=== PATIENT | female | born 1995 | race Asian ===

== ENCOUNTER 2024-06-24 13:58 | Inpatient (IN) ==
--- NOTE | 2024-06-24 14:13 | Emergency Department Note ---
Impression & Plan Depression with suicidal ideation ED Provider Note NAME: GILBERTO HERNANDEZ AGE: 29 SEX: F : 1995 ARRIVES VIA: Law Enforcement Transport INFORMANT: Patient, ED PROVIDER(S): Wilfredo Good MD CHIEF COMPLAINT: Suicidal ideation MEDICAL DECISION MAKING: Patient presented due to concern for suicidal ideation and plan. Blood work was obtained. Patient is a medically cleared seen evaluated by psych case operator referrals were made. Patient was accepted as a 201 voluntary admission. Discussion w/ other healthcare providers: None Prior /Outside records reviewed: None Differential diagnosis: Mood disorder, infection, hypoglycemia, electrolyte abnormalities, dehydration, medication side effect among others were considered. Diagnostics, as interpreted by me: ECG: None None Medical decision rules: Suicide risk severity score Imaging studies: None HPI: Patient presents due to concern for mental wellness to depressed mood suicidal ideation. The patient states that she always had symptoms and during high school back home she had been seen at that time but was doing well she has been to [facility] for the last year and during that time the patient did reach out to her therapist at home who recommended medications but they were unable to prescribe and the patient thought that she was just doing okay as they did not do anything further. Patient reports about 2 months ago she been to have worsening symptoms. The patient to have more fleeting thoughts of suicidal ideation but it has become more prevalent. The patient did establish with [facility] around that time has been going to group therapy but did not find this very helpful. Patient recently started on fluoxetine and increased from 5 to 10 to 15 mg and had increasing suicidal ideations so psychiatrist thought that maybe this was related to this and thus decreased currently on 5 mg and started Zoloft currently on 50 mg beginning today last 2 days he been taking 25 mg. Patient states that she has had thoughts of cutting her veins with herself in front of a moving car in order to kill herself. The patient denies any prior history of self-harm. 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 Patient states that her sleep has been poor difficulty with falling asleep and subsequently staying asleep if she wakes up in the middle the night. Patient states that she has had a poor appetite she has been trying to increase the amount that she is getting. She is felt to have low energy. Patient did discuss things with Today and thus was brought in by police. Patient is willing for inpatient treatment. She denies alcohol tobacco or drug use. PAST MEDICAL HISTORY: Depression PAST SURGICAL HISTORY: No pertinent past surgical history SOCIAL HISTORY: [employer] student. Denies alcohol tobacco or drug use. HOME MEDICATIONS: See Below ALLERGIES: See Below VITALS: See Below PHYSICAL EXAMINATION: GENERAL: NAD, non-toxic. EYE EXAM: Normal conjunctiva. PERRL, no anisocoria and EOM's grossly intact w/o pain. OROPHARYNX: Moist mucus membranes, grossly normal dentition. NECK: Trachea midline, no stridor. LUNGS: Clear to auscultation. Normal chest wall mechanics. HEART: NSR, no MRG. ABDOMEN: Abdomen soft, non-tender, no masses, no rebound or guarding. BACK: No CVA TTP. SKIN: No rashes and no bruising. UPPER EXTREMITIES: Upper extremities are grossly normal. LOWER EXTREMITIES: Grossly normal, no edema. NEURO EXAM: A&O x3, cranial nerves II-XII grossly intact, normal speech, moves all 4 extremities. 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 Required: No Beliefs That Will Affect Care: None Feels Safe at Home: Yes Gender Identity: Female Assistive Devices: None Results & Data (ED) Vital Signs Vital Signs - 24 hr 06/24/24 14:07 06/24/24 16:50 Temperature 37.2 C 36.5 C Temperature Source Temporal Artery Scan Oral Pulse Rate 80 Pulse Rate [Left Finger] 74 Respiratory Rate 18 19 Respiratory Effort / Characteristics Non-Labored Spontaneous Non-Labored Spontaneous Respiratory Depth Normal Normal Respiratory Pattern Regular Regular Blood Pressure 121/81 Blood Pressure [Left Arm] 113/75 Blood Pressure Mean 94 Blood Pressure Mean [Left Arm] 87 Pulse Oximetry 98 96 Oxygen Delivery Method Room Air Room Air Sepsis Recent Fever Within 48 Hours No Sepsis New/Unexplained Change in Mental Status N/A Sepsis Action Taken by Nursing No Action Required Home Medications Current Medication List: was personally reviewed by vt Laboratory Data Attestation: I reviewed the patient's lab results. 06/24/24 14:35 06/24/24 14:35 Lab Results 06/24/24 06/24/24 Range/Units 14:25 14:35 WBC 7.86 (4.8-10.8) K/ul RBC 4.85 (4.20-5.40) M/uL Hgb 11.8 L (12.0-16.0) g/dl Hct 37.8 (37.0-47.0) % MCV 77.9 L (80.0-100.0) fL MCH 24.3 L (25.0-34.0) pg MCHC 31.2 L (32.0-36.0) g/dL RDW Std Deviation 40.9 (36.4-46.3) fL RDW Coeff of Dez 14.7 H (11.5-14.5) % Plt Count 324 (130-400) K/uL MPV 11.4 (9.4-12.4) fL Immature Gran % (Auto) 0.3 % Neut % (Auto) 63.6 % Lymph % (Auto) 24.9 % [place] % (Auto) 5.1 % Eos % (Auto) 5.0 % Baso % (Auto) 1.1 % Neut # (Auto) 5.00 (1.40-6.50) K/uL Lymph # (Auto) 1.96 (1.20-3.40) K/uL [place] # (Auto) 0.40 (0.11-0.59) K/uL Eos # (Auto) 0.39 (0.00-0.50) K/uL Baso # (Auto) 0.09 (0.00-0.20) K/uL Immature Gran # (Auto) 0.02 (0.01-0.20) K/uL Sodium 137 (136-145) mmol/L Potassium 3.6 (3.5-5.1) mmol/L Chloride 104 (98-107) mmol/L Carbon Dioxide 25 (21-32) mmol/L Anion Gap 8 (3-11) BUN 9 (6-23) mg/dl Creatinine 0.74 (0.6-1.2) mg/dl Est Cr Clr Drug Dosing 75.2 ml/min eGFR 113.65 BUN/Creatinine Ratio 12.2 (10-20) Glucose 111 H (70-99(Fasting)) mg/dl Calcium 9.8 (8.6-10.3) mg/dl Total Bilirubin 0.3 (0.2-1.0) mg/dl AST 34 (13-39) U/L ALT 18 (7-52) U/L Alkaline Phosphatase 52 (34-104) U/L Total Protein 8.5 H (6.0-8.3) gm/dl Albumin 4.8 (3.4-5.0) gm/dl Globulin 3.7 (2.5-4.0) gm/dl Albumin/Globulin Ratio 1.3 (0.9-2) TSH 2.657 (0.300-4.500) uIu/ml Urine Color Yellow Urine Appearance Clear (Clear) Urine pH 5.5 (4.5-7.5) Ur Specific [place] 1.007 (1.000-1.030) Urine Protein Negative (Negative) Urine Glucose (UA) Negative (Negative) Urine Ketones Negative (Negative) Urine Blood Negative (Negative) Urine Nitrite Negative (Negative) Urine Bilirubin Negative (Negative) Urine Urobilinogen Negative (Negative) Ur Leukocyte Esterase Negative (Negative) Urine Test Negative (Negative) Salicylates < 3.0 L (3.0-30) mg/dl Urine Opiates Screen Neg (Neg) Ur Methadone, Qual Neg (Neg) Urine Fentanyl Screen Neg (Neg) Acetaminophen < 3 L (10-30) ug/ml Urine Barbiturates Neg (Neg) Ur Phencyclidine (PCP) Neg (Neg) U Amphetamin/Meth Scrn Neg (Neg) MDMA (Ecstasy) Screen Neg (Neg) U Benzodiazepines Scrn Neg (Neg) Ur Cocaine Metabolite Neg (Neg) U Marijuana (THC) Screen Neg (Neg) Ethyl Alcohol mg/dL < 10.0 (<10.0) mg/dl SARS-CoV-2, RNA, NAAT NEGATIVE (NEGATIVE) Discharge Plan Visit Data Chief Complaint: Mental Health Evaluation Stated Complaint: MENTAL HEALTH EVAL/201 ED Provider: Wilfredo Good Discharge Problem: Depression with suicidal ideation Patient Disposition: Admitted As Inpatient Discharge Instructions Interventions: ED Discharge Assessment Last Done: 06/24/24 17:56
[2024-06-24 14:53] LABS: Pregnancy Test, Urine Negative (Negative)
[2024-06-24 14:54] LABS: Appearance Urine Clear (Clear); Bilirubin Urine Negative (Negative); Blood Urine Negative (Negative); Color Urine Yellow; Glucose Urine UA Negative (Negative); Ketones Urine Negative (Negative); Leukocyte Esterase Urine Negative (Negative); Nitrite Urine Negative (Negative); Protein Urine Negative (Negative); Specific Gravity Urine 1.007 (1.000-1.030); Urobilinogen Urine Negative (Negative); pH Urine 5.5 (4.5-7.5)
[2024-06-24 15:09] LABS: Albumin Globulin Ratio 1.3 (0.9-2); Albumin Level 4.8 gm/dl (3.4-5.0); BUN Creatinine Ratio 12.2 (10-20); Bilirubin,Total 0.3 mg/dl (0.2-1.0); Calcium 9.8 mg/dl (8.6-10.3); Creatinine Clr Calc Pharmacy 75.2 ml/min; Globulin 3.7 gm/dl (2.5-4.0); Potassium 3.6 mmol/L (3.5-5.1); Total Protein 8.5 gm/dl (6.0-8.3)
[2024-06-24 15:23] LABS: Thyroid Stimulating Hormone 2.657 uIu/ml (0.300-4.500)
[2024-06-24 15:34] LABS: Acetaminophen < 3 ug/ml (10-30); Salicylate < 3.0 mg/dl (3.0-30)
[2024-06-24 15:41] LABS: Amphetamines+Metham, Urine Neg (Neg); Barbiturates, Urine Neg (Neg); Benzodiazepine, Urine Neg (Neg); Cocaine, Urine Neg (Neg); Fentanyl, Urine Neg (Neg); MDMA (Ecstacy), Urine Neg (Neg); Marijuana, Urine Neg (Neg); Methadone, Urine Neg (Neg); Opiate, Urine Neg (Neg); Phencyclidine, Urine Neg (Neg)
[2024-06-24 16:49] LABS: Basophils # (auto) 0.09 K/uL (0.00-0.20); Basophils % (auto) 1.1 %; Eosinophils # (auto) 0.39 K/uL (0.00-0.50); Hematocrit (blood only) 37.8 % (37.0-47.0); Hemoglobin 11.8 g/dl (12.0-16.0); Immature Granulocytes # (auto) 0.02 K/uL (0.01-0.20); Immature Granulocytes % (auto) 0.3 %; Lymphocytes # (auto) 1.96 K/uL (1.20-3.40); Lymphocytes % (auto) 24.9 %; Mean Corpuscular Hemoglobin 24.3 pg (25.0-34.0); Mean Corpuscular Hgb Conc 31.2 g/dL (32.0-36.0); Mean Corpuscular Volume 77.9 fL (80.0-100.0); Mean Platelet Volume 11.4 fL (9.4-12.4); Monocytes % (auto) 5.1 %; Neutrophils % (auto) 63.6 %; Platelet Count 324 K/uL (130-400); RDW Coefficient of Variation 14.7 % (11.5-14.5); RDW Standard Deviation 40.9 fL (36.4-46.3); Red Blood Count 4.85 M/uL (4.20-5.40); White Blood Count 7.86 K/ul (4.8-10.8)
[2024-06-24] MEDS ORDERED: MAGNESIUM HYDROXIDE SUSP 30 ML UDC PO PRN (17:17)
[2024-06-24] MEDS ORDERED: ALUMINUM/MAGNESIUM SUSP 30 ML UDC PO PRN (17:17)
[2024-06-24] MEDS ORDERED: ACETAMINOPHEN 325 MG TAB PO PRN (17:17)
[2024-06-24] MEDS ORDERED: BISMUTH SUBSALICYLATE 262 MG CHEW PO PRN (17:17)
[2024-06-24] MEDS ORDERED: SODIUM CHLORIDE 0.65% NA SOLN 45 ML (OCEAN) PRN (17:17)
[2024-06-24] MEDS ORDERED: hydrOXYzine HCl 25 MG TAB PO PRN (17:17)
--- NOTE | 2024-06-25 09:05 | History & Physical ---
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 Diagnostically consistent with unspecified mood disorder with differential including: major depressive disorder with anxious distress and panic attacks vs bipolar disorder current depressive episode. Also suspect co-occurring NICHOLAS with panic attacks and OCD. Discussed medication treatment options in detail. Discussed risks, benefits and alternatives. Patient would like to start and consented to mirtazapine for depression/anxiety/insomnia/poor appetite and ongoing sertraline for depression, NICHOLAS and likely OCD. Reviewed side effects including but not limited to: GI, CURRAN, sexual side effects with sertraline and sedation/weight gain/increased appetite with mirtazapine. Overall I spent a total of 75 minutes for this admission including review of chart records, review of labwork, direct evaluation of the patient, counseling the patient, ordering medication, risk assessment, discussion with the psychiatric liason RN and documentation in the electronic health record. (1) Depression with suicidal ideation: (2) Generalized anxiety disorder with panic attacks: (3) Obsessive compulsive disorder: (4) Insomnia: (5) Weight loss, unintentional: Plan 06/25/2024: The patient was admitted to the [facility] ([facility]) on q15 min checks (behavioral with suicide precautions) for safety. The patient will participate in group, recreational, and milieu therapies and will be offered additional individual and family sessions as clinically appropriate. -Medications: * Continue sertraline 50mg daily * Start mirtazapine 15mg HS po * Consider augmentation with mood stabilizer or abilify based on results of mood disorder questionnaire and/or Y-BOCS while waiting for SSRI to take effect -Questionnaires: * Y-BOCS * Mood Disorder Inventory Assets Strengths: supportive relationships, willing to get treatment Needs: safety and stabilization, medication adjustment, additional coping skills, increased outpatient services Suicide Risk Level Suicide Risk Level: High-Moderate (q15 min suicide checks) (worsened depression and anxiety with SI with plans prior to admission but feels safe in the hospital and feels able to ask for support) Risk Factors Assessment Male: No : No Do You Have Access To A Gun?: No Health Problems: No Mental Health Diagnoses: Yes Substance Use Disorders: No Previous Attempt: No Family History of Suicide: Yes Previous Psychiatric Hospitalization: No Hopelessness: Yes Protective Factors Assessment Employed: Yes Stable Relationships: Yes Psychiatric History Identifying Data GILBERTO HERNANDEZ is a 29-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 Chief Complaint "I've been crying all day". History of Present Illness She presents for psychiatric admission for worsening depression and intensifying SI with multiple plans referred by her outpatient providers at [facility]. She reports an increase in depressive and anxiety symptoms since April following her qualifying exam and feeling "unsatisfied" even though she got great feedback. She identifies depression symptoms including frequent uncontrolled tearfulness, anhedonia, decreased motivation, self-guilt, helplessness, hopelessness, worthlessness, "sad, empty, lonely, disconnected", decreased energy, decreased appetite (with unintentional weight loss of about 22 lbs since last year), and decreased sleep. SI has been occurring since April as passive thoughts and then intensified within the last two weeks with plans of jumping from a building or cutting herself to bleed to . She also endorses symptoms of anxiety including generalized worries, racing thoughts, difficulty breathing, sweating, shakiness, easily overwhelmed and possible panic attacks (multiple times per day for last couple of weeks). She is currently prescribed sertraline, started on Friday 25mg for two days then yesterday took first dose of 50mg (had a CURRAN and some abdominal cramps). Recently had been on escitalopram but tapered due to concern it could be contributing to increased SI. Psychiatric ROS notable for no current nor history of symptoms of psychosis, eating disorder nor self-harm. Endorses history of possible lavonne-describes in April wasn't sleeping but was very energetic (working a lot, hiking with friends), sometimes with elevated mood but also with periods of sadness. Possible PTSD in the distant past, no recent symptoms. Reports possible OCD symptoms noting "I need things in a certain way or I used to worry that something would harm my parents", rituals with flicking the lights, has to sleep in a certain direction, has to drink water after hearing certain noises ("it doesn't make any sense"). Describes feeling that something bad would happen if rituals were not performed. 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 She took a dose of Vistaril today and found this helpful with significant lessening of her tearfulness. Additional collateral per ED CM note on 06/24/2024: "Met with patient with Dr. Good for a brief MH evaluation. Patient reports to ED after an appointment with her therapist at [facility]. Patient was tearful, soft spoken and blunted. She reports an increase in depression since April. She states she has always had fleeting SI, but she has had almost constant SI for the last two weeks. Patient has Psychiatry and Therapy through [facility]. She meets with her therapist weekly and her psychiatrist every other week. Patient reports an increase in her Lexapro, but her psychiatrist feels she may be having poor side effects (constant crying) and therefore is weaning her off of her Lexapro and has since prescribed her 50mg of Zoloft. Patient states she has never had such intense SI, that she has several plans such as jumping in front of a moving vehicle, cutting her veins and jumping off of a tall building. Patient states she avoids tall buildings as she does not want to act on it, but feels the urge is so strong she might not be able to stop herself. 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 Patient denies HI. No psychosis. No access to guns/weapons. She reports her appetite is very poor and she has lost a lot of weight since moving from [place], but states she has been trying to force herself to eat as she has noticed low energy. Patient reports poor sleep; she has a hard time falling asleep and staying asleep. Patient reports constant anxiety. No SIB. No previous inpatient MH treatment, but feels she is unable to keep herself safe at home at this time and is requesting inpatient treatment. Patient reports a history of MH in her family including her mother who has depression and her maternal aunt who is schizophrenic. Patient reports her paternal uncle completed suicide, and her paternal grandfather starved himself to . Patient denies a history of trauma and/or abuse." Past Psychiatric History Current Psychiatric Diagnosis: Depression, Anxiety Outpatient Services: [facility] for therapy-sheldon Khanna Previous Psych Admissions: none Do You Have Access To A Gun?: No History of Previous Suicide Attempt: No Past Medication Trials: escitalopram up to 15mg but stopped after increase in SI Past Head Trauma/Neuro History History of Concussion/Seizure: No Allergies Allergy/AdvReac Type Severity Reaction Status Date / Time [place] And Derivatives AdvReac Intermediate sore Verified 06/25/24 13:30 throat, fever soda AdvReac Mild sore throat Uncoded 06/25/24 13:30 Home Medications Medication Instructions Recorded Confirmed Type escitalopram oxalate 5 mg tablet 5 mg PO DAILY 06/25/24 06/25/24 History sertraline 50 mg tablet 50 mg PO DAILY 06/25/24 06/25/24 History Family History Family History of: Depression (mother), Anxiety, Psychosis/ThoughtDisorder (aunt), Suicide Attempts and Suicide Completion (paternal uncle and paternal grandfather) Alcohol History Hx of Alcohol Use Over the Past 12 Months: No AUDIT Total Score: 0 Smoking Use Have You Smoked or Used Tobacco Products in the Last 30 Days: No Smoking Status: Never smoker Substance History Hx of Prescription Med Misuse Over the Past 12 Months: No Hx of Over the Counter Med Misuse Over the Past 12 Months: No Hx of Inhalent Misuse Over the Past 12 Months: No Hx of Organic Substance Use Over the Past 12 Months: No Hx of Illegal Substances/Street Drug Use Over Past 12 Months: No Problems as a Result of Past Substance Use: None Identified Personal History Living Arrangements: Apartment Childhood: Grew up in [place], family lives there Highest Grade Completed: Graduate School (Chemistry ) Employment Status: 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 (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) Marital Status: Single Number Of Children: none Beliefs That Will Affect Care: None Current Legal Problems: No Hx Legal Problems: No Hx Traumatic Life Events: Yes Patient History Social History Smoking Status: Never smoker Preferred Language: [place] Islander Communication Ability: Effective Jumpbasting Facing Baster Required: No Beliefs That Will Affect Care: None Feels Safe at Home: Yes Gender Identity: Female Assistive Devices: None Review of Systems Review of Systems: All systems reviewed & are unremarkable except as noted in HPI & below Physical Exam Psychiatric: Orientation: alert and oriented x 3 Apperance: appropriately dressed and appropriately groomed Eye Contact: good eye contact Motor Behavior: no abnormal motor movements Speech: normal rate/rhythm/volume of speech Affect: + depressed affect, + anxious affect and + tearful affect Mood: + depressed mood and + anxious mood Thought Process: + circumstantial thought process Thought Content: + cognitive distortions, + hopelessness, + worthlessness and + loneliness Suicidal Thoughts: denies suicidal plan and denies suicidal intent; + reports suicidal thoughts (intermittent) Homicidal Thoughts: denies homicidal thoughts Hallucinations: no auditory hallucinations and no visual hallucinations Cognition: recent memory grossly intact, remote memory grossly intact, attention grossly intact and language grossly intact Estimated Intelligence: consistent with education level Insight: + limited insight Judgment: + fair judgement Vital Signs (Past 24 Hours): Last Vital Signs Temp 36.9 C 06/25/24 06:13 Pulse 84 06/25/24 06:14 Resp 16 06/25/24 06:13 BP 106/65 06/25/24 06:14 Pulse Ox 98 06/25/24 06:13 O2 Del Method Room Air 06/25/24 06:13 Exam Statement: A physical exam was performed in the ED by Dr. Good for the purposes of medical clearance. I accept that physical as correct and adequate for the purposes of the inpatient physical exam. Results & Data ([facility]) Laboratory Results Laboratory Results - last 24 hr 06/24/24 06/24/24 14:25 14:35 WBC 7.86 RBC 4.85 Hgb 11.8 L Hct 37.8 MCV 77.9 L MCH 24.3 L MCHC 31.2 L RDW Std Deviation 40.9 RDW Coeff of Dez 14.7 H Plt Count 324 MPV 11.4 Immature Gran % (Auto) 0.3 Neut % (Auto) 63.6 Lymph % (Auto) 24.9 [place] % (Auto) 5.1 Eos % (Auto) 5.0 Baso % (Auto) 1.1 Neut # (Auto) 5.00 Lymph # (Auto) 1.96 [place] # (Auto) 0.40 Eos # (Auto) 0.39 Baso # (Auto) 0.09 Immature Gran # (Auto) 0.02 Sodium 137 Potassium 3.6 Chloride 104 Carbon Dioxide 25 Anion Gap 8 BUN 9 Creatinine 0.74 Est Cr Clr Drug Dosing 75.2 eGFR 113.65 BUN/Creatinine Ratio 12.2 Glucose 111 H Calcium 9.8 Total Bilirubin 0.3 AST 34 ALT 18 Alkaline Phosphatase 52 Total Protein 8.5 H Albumin 4.8 Globulin 3.7 Albumin/Globulin Ratio 1.3 TSH 2.657 Urine Color Yellow Urine Appearance Clear Urine pH 5.5 Ur Specific [place] 1.007 Urine Protein Negative Urine Glucose (UA) Negative Urine Ketones Negative Urine Blood Negative Urine Nitrite Negative Urine Bilirubin Negative Urine Urobilinogen Negative Ur Leukocyte Esterase Negative Urine Test Negative Salicylates < 3.0 L Urine Opiates Screen Neg Ur Methadone, Qual Neg Urine Fentanyl Screen Neg Acetaminophen < 3 L Urine Barbiturates Neg Ur Phencyclidine (PCP) Neg U Amphetamin/Meth Scrn Neg MDMA (Ecstasy) Screen Neg U Benzodiazepines Scrn Neg Ur Cocaine Metabolite Neg U Marijuana (THC) Screen Neg Ethyl Alcohol mg/dL < 10.0 SARS-CoV-2, RNA, NAAT NEGATIVE Current Inpatient Medications Current Inpatient Medications: Current Inpatient Medications Acetaminophen (Acetaminophen 325 Mg Tab) 650 mg PO Q4H PRN PRN Reason: Headache or Minor Fever Stop: 07/24/24 17:16 Al Hydrox/Mg Hydrox/Simethicone (Aluminum/Magnesium Susp 30 Ml Udc) 30 ml PO Q4H PRN PRN Reason: GI Upset Stop: 07/24/24 17:16 Bismuth Subsalicylate (Bismuth Subsalicylate 262 Mg Chew) 2 tab PO Q30M PRN PRN Reason: Loose Stool/Diarrhea Stop: 07/24/24 17:16 Hydroxyzine HCl (Hydroxyzine Hcl 25 Mg Tab) 50 mg PO HSZ PRN PRN Reason: Insomnia Stop: 07/24/24 17:16 Hydroxyzine HCl (Hydroxyzine Hcl 25 Mg Tab) 25 mg PO Q4H PRN PRN Reason: Anxiety Stop: 07/24/24 17:16 Magnesium Hydroxide (Magnesium Hydroxide Susp 30 Ml Udc) 30 ml PO DAILY PRN PRN Reason: Constipation Stop: 07/24/24 17:16 Sodium Chloride (Sodium Chloride 0.65% Na Soln 45 Ml (Galt)) 1 - 2 sprays NA PRN PRN PRN Reason: Nasal Dryness/Congestion Stop: 07/24/24 17:16
[2024-06-25] MEDS: hydrOXYzine HCl 25 MG TAB PO PRN (12:05)
[2024-06-25] MEDS: SERTRALINE HCL 50 MG TABLET PO SCH (14:18)
[2024-06-25] MEDS: MIRTAZAPINE TAB 15 MG TAB PO SCH (21:05)
[2024-06-26] MEDS: IBUPROFEN 200 MG TAB PO PRN (13:34)
[2024-06-26] MEDS: ARIPiprazole 5 MG TAB PO SCH (13:34)
--- NOTE | 2024-06-26 14:32 | Psychiatric Progress Note ---
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 A:Clarified patient's diagnosis today and consistent with bipolar 2 major depressive episode and generalized anxiety disorder with panic attacks. We will investigate for OCD symptoms and provided Y-BOCs questionnaire. Concern for recurrent major depressive episodes with recent hypomania. Higher concern for bipolar 2 disorder vs unipolar depression given recurrent hypomania, early onset of depression in teenage years and history of depression with completed suicides in family members. Current depression accounts for her poor self-esteem, sleep and appetite impairments, increased guilt, crying spells and further exacerbates pre-existing anxiety. Concern for associated panic symptoms with anxiety. Diagnoses and treatments were reviewed with the patient. Plan to start Abilify 5 mg daily, medication side effects and adverse effects discussed with the patient and agreeable. Plan to draw labs for nutritional deficiencies and metab olic function. Overall, I spent a total of 70 minutes with this case including review of chart records, nursing report, review of lab work, direct evaluation of the patient at bedside, counseling the patient, multidisciplinary team meeting, orders, gathering collateral from patient's friends and documentation in the electronic health record. (1) Suicidal ideation: (2) Insomnia: (3) Bipolar 2 disorder, major depressive episode: (4) Generalized anxiety disorder with panic attacks: (5) Obsessive compulsive disorder: (6) Weight loss, unintentional: (7) Mild anemia: Plan 06/26/2024: Start Abilify 5 mg daily. Labs: Vitamin D, B12, hemoglobin A1c, fasting lipid profile. Y-BOCs questionaire. 06/25/2024: The patient was admitted to the [facility] ([facility] inpatient mental health unit) on q15 min checks (behavioral with suicide precautions) for safety. The patient will participate in group, recreational, and milieu therapies and will be of fered additional individual and family sessions as clinically appropriate. -Medications: * Continue sertraline 50mg daily * Start mirtazapine 15mg HS po * Consider augmentation with mood stabilizer or abilify based on results of mood disorder questionnaire and/or Y-BOCS while waiting for SSRI to take effect -Questionnaires: * Y-BOCS * Mood Disorder Inventory Assets Strengths: supportive relationships, willing to get treatment Needs: safety and stabilization, medication adjustment, additional coping skills, increased outpatient services Suicide Risk Level Suicide Risk Level: High-Moderate (q15 min suicide checks) (worsened depression and anxiety with SI with plans prior to admission but feels safe in the hospital and feels able to ask for support) Suicide Risk Level Comments: High-Moderate due to severe depression with SI with plan prior to admission but feels safe in the hospital, able to safety contract and agrees to let nursing/staff know should they develop plan, intent or feel unable to remain safe. 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 Chief Complaint "Anxious person" Review of Systems Sleep Information Total Hours of Sleep: 7 Meal Information Percent Meal Consumed - Breakfast: 100 Percent Meal Consumed - Lunch: 60 Percent Meal Consumed - Dinner: 75 Subjective Subjective Patient was seen & assessed and interval progress reviewed with treatment team nursing and social work Says she is a highly ambitious person but even when things go well she doubts herself and is unhappy. 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 She went on a "downward spiral" and continued to ruminate. She then went to [facility] for therapy and medication management. She was started on Lexapro in late April from 5 mg to 15 mg and then presented increased suicidal ideations so her medication was switched to sertraline. She was on Lexapro for roughly 6 to 8 weeks. She complains of ruminating thoughts often "overreacting" and spending excessive time worrying. Reports poor self-esteem and increased guilt. Complains of difficulty staying asleep and poor appetite. Concern for past major depressive episodes as this has occurred for 2+ weeks in the past and resolved. Reports past episodes lasting 3 to 5 days were she presents an improved mood, decreased need for sleep, high energy, increased goal directed activity. 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 Reports past completed suicides in paternal grandfather and uncle through starvation and shooting self respectively. Mother with depression. Unknown medications for family members. Complains of physical anxiety where she is sweating, short of breath, feelings of choking, increased heart rate, hand shaking and feels mentally that she is "wrapped in a plastic shade". Says this occurs 2-3 times a day lasting 10 to 15 minutes and last experience yesterday. Vistaril was effective for this. Reports difficulties with roommates and housing since she moved from [facility] in February 2023. States that currently she is happy with her current roommates and they are supportive. Physical Exam Mental Examination Appearance: Well Groomed Eye Contact: Direct Eye Contact Motor Behavior: Unremarkable Speech: Soft Mood: Depressed, Anxious, Sad, Crying and Tearful Affect: Anxious, Blunted, Nervous and Sad Thought Process: Intact Thought Content: Intact Hallucinations: None Insight: Poor Judgement: Poor Vital Signs (Past 24 Hours) Last Vital Signs Temp 36.6 C 06/26/24 06:46 Pulse 85 06/26/24 06:47 Resp 16 06/26/24 06:46 BP 99/65 L 06/26/24 06:47 Pulse Ox 98 06/25/24 06:13 O2 Del Method Room Air 06/25/24 06:13 Results & Data ([facility]) Current Inpatient Medications Current Inpatient Medications: Current Inpatient Medications Al Hydrox/Mg Hydrox/Simethicone (Aluminum/Magnesium Susp 30 Ml Udc) 30 ml PO Q4H PRN PRN Reason: GI Upset Stop: 07/24/24 17:16 Aripiprazole (Aripiprazole 5 Mg Tab) 5 mg PO QAM ONEIL Stop: 07/26/24 12:44 Last Admin: 06/26/24 13:34 Dose: 5 mg Bismuth Subsalicylate (Bismuth Subsalicylate 262 Mg Chew) 2 tab PO Q30M PRN PRN Reason: Loose Stool/Diarrhea Stop: 07/24/24 17:16 Hydroxyzine HCl (Hydroxyzine Hcl 25 Mg Tab) 50 mg PO HSZ PRN PRN Reason: Insomnia Stop: 07/24/24 17:16 Hydroxyzine HCl (Hydroxyzine Hcl 25 Mg Tab) 25 mg PO Q4H PRN PRN Reason: Anxiety Stop: 07/24/24 17:16 Last Admin: 06/25/24 12:05 Dose: 25 mg Ibuprofen (Ibuprofen 200 Mg Tab) 400 mg PO Q6H PRN PRN Reason: Pain or Fever Stop: 07/26/24 12:59 Last Admin: 06/26/24 13:34 Dose: 400 mg Magnesium Hydroxide (Magnesium Hydroxide Susp 30 Ml Udc) 30 ml PO DAILY PRN PRN Reason: Constipation Stop: 07/24/24 17:16 Mirtazapine (Mirtazapine Tab 15 Mg Tab) 15 mg PO HS ONEIL Stop: 07/25/24 21:59 Last Admin: 06/25/24 21:05 Dose: 15 mg Sertraline HCl (Sertraline Hcl 50 Mg Tablet) 50 mg PO QAM ONEIL Stop: 07/25/24 13:44 Last Admin: 06/26/24 10:00 Dose: 50 mg Sodium Chloride (Sodium Chloride 0.65% Na Soln 45 Ml ([place])) 1 - 2 sprays NA PRN PRN PRN Reason: Nasal Dryness/Congestion Stop: 07/24/24 17:16 Mental Health & Subst Abuse Tx Psychiatrist Name of Psychiatrist: PARVEZ - psychiatrist Ginny Beatty Psychiatrist's Date Of Appointment With Psychiatric Provider: 06/29/24 Time of Appointment with Psychiatrist: 3pm Therapist Name of Therapist: PARVEZ therapist Therapist's Therapy Appointment Comment: Seen for therapy on Tuesdays Director Park Name of Director Park: N/A Post Discharge Appointments Primary Care Physician Name Of Family Doctor/PCP: BELÉN
[2024-06-27 07:38] LABS: Chol HDL Ratio 2.7 (0-5)
[2024-06-27 07:40] LABS: Estimated Average Glucose 103 mg/dl; Hemoglobin A1C 5.2 % (4.5-5.6)
[2024-06-27] MEDS: CHOLECALCIFEROL 125 MCG (5,000 UNITS) TAB PO SCH (09:30)
[2024-06-27] MEDS ORDERED: ONDANSETRON 2 MG OD TAB PO PRN (12:57)
--- NOTE | 2024-06-27 13:46 | Psychiatric Progress Note ---
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 A: Patient presents an improved outlook and mood today. Concerned that patient is experiencing nausea from Abilify, we will start Zofran as needed and schedule Abilify at night. Labs resulted: B12, lipid panel, hemoglobin A1c unremarkable and vitamin D deficient. Plan to start vitamin D supplement and to increase sertraline dose. Overall, I spent a total of 30 minutes with this case including review of chart records, nursing report, review of lab work, direct evaluation of the patient at bedside, counseling the patient, multidisciplinary team meeting, orders and documentation in the electronic health record. (1) Insomnia: (2) Bipolar 2 disorder, major depressive episode: (3) Generalized anxiety disorder with panic attacks: (4) Obsessive compulsive disorder: (5) Weight loss, unintentional: (6) Mild anemia: Plan 06/27/2024: Start vitamin D 5000 units daily. Increase sertraline to 75 mg daily. Abilify 5mg at bedtime instead of morning. Zofran 2mg Q6hr PRN started. 06/26/2024: Start Abilify 5 mg daily. Labs: Vitamin D, B12, hemoglobin A1c, fasting lipid profile. Y-BOCs questionaire. 06/25/2024: The patient was admitted to the [facility] ([facility] mental health unit) on q15 min checks (behavioral with suicide precautions) for safety. The patient will participate in group, recreational, and milieu therapies and will be offered additional individual and family sessions as clinically appropriate. -Medications: * Continue sertraline 50mg daily * Start mirtazapine 15mg HS po * Consider augmentation with mood stabilizer or abilify based on results of mood disorder questionnaire and/or Y-BOCS while waiting for SSRI to take effect -Questionnaires: * Y-BOCS * Mood Disorder Inventory Assets Strengths: supportive relationships, willing to get treatment Needs: safety and stabilization, medication adjustment, additional coping skills, increased outpatient services Suicide Risk Level Suicide Risk Level: High-Moderate (q15 min suicide checks) (worsened depression and anxiety with SI with plans prior to admission but feels safe in the hospital and feels able to ask for support) Suicide Risk Level Comments: High-Moderate due to severe depression with SI with plan prior to admission but feels safe in the hospital, able to safety contract and agrees to let nursing/staff know should they develop plan, intent or feel unable to remain safe. 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 Chief Complaint "Less anxious today" Review of Systems Sleep Information Total Hours of Sleep: 7.5 Meal Information Percent Meal Consumed - Breakfast: 75 Percent Meal Consumed - Lunch: 0 Percent Meal Consumed - Dinner: 55 Nutrition Comment: Patient reports nausea Subjective Subjective Patient was seen & assessed and interval progress reviewed with treatment team nursing and social work Patient reports feeling dizzy and this usually happens after giving a blood sample. She reports sleeping better however continues to have disrupted sleep. Has been tolerating Abilify. Reports better mood after friends visited yesterday. She denies SI. She reports future plans to work on her paper. Later in the day she complains of nausea. She completed the Y-BOCs symptom checklist and remarkable for some superstitions, repetitive behaviors such as touching tapping or rubbing, blinking, staring, rereading or rewriting. Mild obsessions about contamination and aggressions. Complains of miscellaneous obsessions related to self-doubt. Physical Exam Mental Examination Appearance: Well Groomed Eye Contact: Direct Eye Contact Motor Behavior: Unremarkable Speech: Soft Mood: Depressed and Anxious Affect: Anxious and Constricted Thought Process: Intact Thought Content: Intact Hallucinations: None Insight: Fair (to limited) Judgement: Poor (to limited) Vital Signs (Past 24 Hours) Last Vital Signs Temp 36.7 C 06/27/24 06:47 Pulse 75 06/27/24 06:47 Resp 16 06/27/24 06:47 BP 112/78 06/27/24 06:47 Pulse Ox 98 06/25/24 06:13 O2 Del Method Room Air 06/25/24 06:13 Results & Data ([facility]) Laboratory Results Laboratory Results - last 24 hr 06/27/24 07:08 Estimat Average Glucose 103 Hemoglobin A1c 5.2 Triglycerides 123 Cholesterol 154 LDL Cholesterol, Calc 71 VLDL Cholesterol, Calc 25 HDL Cholesterol 58 Cholesterol/HDL Ratio 2.7 Vitamin B12 339 25-OH Vitamin D Total 13.9 L Current Inpatient Medications Current Inpatient Medications: Current Inpatient Medications Al Hydrox/Mg Hydrox/Simethicone (Aluminum/Magnesium Susp 30 Ml Udc) 30 ml PO Q4H PRN PRN Reason: GI Upset Stop: 07/24/24 17:16 Aripiprazole (Aripiprazole 5 Mg Tab) 5 mg PO HS ONEIL Stop: 07/28/24 21:59 Bismuth Subsalicylate (Bismuth Subsalicylate 262 Mg Chew) 2 tab PO Q30M PRN PRN Reason: Loose Stool/Diarrhea Stop: 07/24/24 17:16 Hydroxyzine HCl (Hydroxyzine Hcl 25 Mg Tab) 50 mg PO HSZ PRN PRN Reason: Insomnia Stop: 07/24/24 17:16 Hydroxyzine HCl (Hydroxyzine Hcl 25 Mg Tab) 25 mg PO Q4H PRN PRN Reason: Anxiety Stop: 07/24/24 17:16 Last Admin: 06/25/24 12:05 Dose: 25 mg Ibuprofen (Ibuprofen 200 Mg Tab) 400 mg PO Q6H PRN PRN Reason: Pain or Fever Stop: 07/26/24 12:59 Last Admin: 06/27/24 08:31 Dose: 400 mg Magnesium Hydroxide (Magnesium Hydroxide Susp 30 Ml Udc) 30 ml PO DAILY PRN PRN Reason: Constipation Stop: 07/24/24 17:16 Mirtazapine (Mirtazapine Tab 15 Mg Tab) 15 mg PO HS ONEIL Stop: 07/25/24 21:59 Last Admin: 06/26/24 20:32 Dose: 15 mg Ondansetron HCl (Ondansetron 2 Mg Od Tab) 2 mg PO Q6H PRN PRN Reason: Nausea Stop: 07/27/24 12:56 Sertraline HCl (Sertraline Hcl 50 Mg Tablet) 75 mg PO QAM ONEIL Stop: 07/28/24 08:59 Sodium Chloride (Sodium Chloride 0.65% Na Soln 45 Ml ([place])) 1 - 2 sprays NA PRN PRN PRN Reason: Nasal Dryness/Congestion Stop: 07/24/24 17:16 Vitamin D (Cholecalciferol 125 Mcg (5,000 Units) Tab) 125 mcg PO QAM ONEIL Stop: 07/27/24 08:59 Last Admin: 06/27/24 09:30 Dose: 125 mcg Mental Health & Subst Abuse Tx Psychiatrist Name of Psychiatrist: PARVEZ - psychiatrist Ginny Beatty Psychiatrist's Date Of Appointment With Psychiatric Provider: 06/29/24 Time of Appointment with Psychiatrist: 3pm Therapist Name of Therapist: PARVEZ therapist Therapist's Therapy Appointment Comment: Seen for therapy on Tuesdays Aircraft Servicer Name of Aircraft Servicer: N/A Post Discharge Appointments Primary Care Physician Name Of Family Doctor/PCP: BELÉN
[2024-06-28] MEDS: SERTRALINE HCL 50 MG TABLET PO SCH (09:10)
--- NOTE | 2024-06-28 09:49 | Discharge Summary ---
Date of Service June 28, 2024 History of Present Illness She presents for psychiatric admission for worsening depression and intensifying SI with multiple plans referred by her outpatient providers at [facility]. She reports an increase in depressive and anxiety symptoms since April following her qualifying exam and feeling "unsatisfied" even though she got great feedback. She identifies depression symptoms including frequent uncontrolled tearfulness, anhedonia, decreased motivation, self-guilt, helplessness, hopelessness, worthlessness, "sad, empty, lonely, disconnected", decreased energy, decreased appetite (with unintentional weight loss of about 22 lbs since last year), and decreased sleep. SI has been occurring since April as passive thoughts and then intensified within the last two weeks with plans of jumping from a building or cutting herself to bleed to . She also endorses symptoms of anxiety including generalized worries, racing thoughts, difficulty breathing, sweating, shakiness, easily overwhelmed and possible panic attacks (multiple times per day for last couple of weeks). She is currently prescribed sertraline, started on Friday 25mg for two days then yesterday took first dose of 50mg (had a CURRAN and some abdominal cramps). Recently had been on escitalopram but tapered due to concern it could be contributing to increased SI. Psychiatric ROS notable for no current nor history of symptoms of psychosis, eating disorder nor self-harm. Endorses history of possible lavonne-describes in April wasn't sleeping but was very energetic (working a lot, hiking with friends), sometimes with elevated mood but also with periods of sadness. Possible PTSD in the distant past, no recent symptoms. Reports possible OCD symptoms noting "I need things in a certain way or I used to worry that something would harm my parents", rituals with flicking the lights, has to sleep in a certain direction, has to drink water after hearing certain noises ("it doesn't make any sense"). Describes feeling that something bad would happen if rituals were not performed. 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 She took a dose of Vistaril today and found this helpful with significant lessening of her tearfulness. Additional collateral per ED CM note on 06/24/2024: "Met with patient with Dr. Good for a brief MH evaluation. Patient reports to ED after an appointment with her therapist at [facility]. Patient was tearful, soft spoken and blunted. She reports an increase in depression since April. She states she has always had fleeting SI, but she has had almost constant SI for the last two weeks. Patient has Psychiatry and Therapy through [facility]. She meets with her therapist weekly and her psychiatrist every other week. Patient reports an increase in her Lexapro, but her psychiatrist feels she may be having poor side effects (constant crying) and therefore is weaning her off of her Lexapro and has since prescribed her 50mg of Zoloft. Patient states she has never had such intense SI, that she has several plans such as jumping in front of a moving vehicle, cutting her veins and jumping off of a tall building. Patient states she avoids tall buildings as she does not want to act on it, but feels the urge is so strong she might not be able to stop herself. 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 Patient denies HI. No psychosis. No access to guns/weapons. She reports her appetite is very poor and she has lost a lot of weight since moving from [facility], but states she has been trying to force herself to eat as she has noticed low energy. Patient reports poor sleep; she has a hard time falling asleep and staying asleep. Patient reports constant anxiety. No SIB. No previous inpatient MH treatment, but feels she is unable to keep herself safe at home at this time and is requesting inpatient treatment. Patient reports a history of MH in her family including her mother who has depression and her maternal aunt who is schizophrenic. Patient reports her paternal uncle completed suicide, and her paternal grandfather starved himself to . Patient denies a history of trauma and/or abuse." Physical Exam Mental Examination Appearance: Well Groomed Eye Contact: Direct Eye Contact Motor Behavior: Unremarkable Speech: Soft Mood: Euthymic and Calm Affect: Appropriate, Congruent and Constricted Thought Process: Intact Thought Content: Intact Hallucinations: None Insight: Fair (to limited) Judgement: Poor (to limited) Vital Signs (Past 24 Hours) Last Vital Signs Temp 36.5 C 06/28/24 06:41 Pulse 80 06/28/24 06:41 Resp 16 06/28/24 06:41 BP 115/80 06/28/24 06:41 Pulse Ox 98 06/25/24 06:13 O2 Del Method Room Air 06/25/24 06:13 Principal Diagnosis Bipolar 2 Disorder, major depressive episode Psychiatric Data See daily stay summary. In short, safety was maintained and the patient was cooperative with care. Medication changes included starting Sertraline 75mg QD, Abilify 5mg QD, and Mirtazapine 15mg HS and they tolerated this well. A family session was held and safety plan was completed prior to discharge. Patient presented an improvement in mood, future outlook, was more hopeful, resolution of SI, improved sleep, dec anxious ruminations prior to discharge. She was educa tamanna about her diagnosis and encouraged to engage in regular counseling. Day of Discharge Assessment Today the patient voices readiness for discharge. They note improvement in mood and deny thoughts to harm self or others. Thoughts remain organized and they are improved from admission. There is no evidence of psychosis. They agree to take mediations as prescribed and keep follow-up appointments. They are stable for discharge to outpatient level of care. Transition of Care Transition Of Care Record: was reviewed with the patient Advance Directives Advance Directives Information Provided: Yes Advance Directives: No Mental Health Advance Directive: No Advance Directives on File: No Living Will: No Power of Php Engineer: No Advance Directives Reason:: Declines as Mental Health Visit. Suicide Risk Level Suicide Risk Level: Low (q15 min observation checks) Risk Factors Assessment Male: No : No Do You Have Access To A Gun?: No Health Problems: No Mental Health Diagnoses: Yes Substance Use Disorders: No Previous Attempt: No Family History of Suicide: Yes Previous Psychiatric Hospitalization: No Hopelessness: Yes Protective Factors Assessment Employed: Yes Stable Relationships: Yes Discharge Data Lab Results 06/24/24 06/24/24 06/27/24 14:25 14:35 07:08 WBC 7.86 RBC 4.85 Hgb 11.8 L Hct 37.8 MCV 77.9 L MCH 24.3 L MCHC 31.2 L RDW Std Deviation 40.9 RDW Coeff of Dez 14.7 H Plt Count 324 MPV 11.4 Immature Gran % (Auto) 0.3 Neut % (Auto) 63.6 Lymph % (Auto) 24.9 Campbell % (Auto) 5.1 Eos % (Auto) 5.0 Baso % (Auto) 1.1 Neut # (Auto) 5.00 Lymph # (Auto) 1.96 Campbell # (Auto) 0.40 Eos # (Auto) 0.39 Baso # (Auto) 0.09 Immature Gran # (Auto) 0.02 Sodium 137 Potassium 3.6 Chloride 104 Carbon Dioxide 25 Anion Gap 8 BUN 9 Creatinine 0.74 Est Cr Clr Drug Dosing 75.2 eGFR 113.65 BUN/Creatinine Ratio 12.2 Glucose 111 H Estimat Average Glucose 103 Hemoglobin A1c 5.2 Calcium 9.8 Total Bilirubin 0.3 AST 34 ALT 18 Alkaline Phosphatase 52 Total Protein 8.5 H Albumin 4.8 Globulin 3.7 Albumin/Globulin Ratio 1.3 Triglycerides 123 Cholesterol 154 LDL Cholesterol, Calc 71 VLDL Cholesterol, Calc 25 HDL Cholesterol 58 Cholesterol/HDL Ratio 2.7 Vitamin B12 339 25-OH Vitamin D Total 13.9 L TSH 2.657 Urine Color Yellow Urine Appearance Clear Urine pH 5.5 Ur Specific Council 1.007 Urine Protein Negative Urine Glucose (UA) Negative Urine Ketones Negative Urine Blood Negative Urine Nitrite Negative Urine Bilirubin Negative Urine Urobilinogen Negative Ur Leukocyte Esterase Negative Urine Test Negative Salicylates < 3.0 L Urine Opiates Screen Neg Ur Methadone, Qual Neg Urine Fentanyl Screen Neg Acetaminophen < 3 L Urine Barbiturates Neg Ur Phencyclidine (PCP) Neg U Amphetamin/Meth Scrn Neg MDMA (Ecstasy) Screen Neg U Benzodiazepines Scrn Neg Ur Cocaine Metabolite Neg U Marijuana (THC) Screen Neg Ethyl Alcohol mg/dL < 10.0 SARS-CoV-2, RNA, NAAT NEGATIVE Hospital Course (1) Bipolar 2 disorder, major depressive episode: (2) Generalized anxiety disorder with panic attacks: (3) Obsessive compulsive disorder: (4) Weight loss, unintentional: (5) Mild anemia: (6) Vitamin D deficiency: Plan 06/27/2024: Start vitamin D 5000 units daily. Increase sertraline to 75 mg daily. Abilify 5mg at bedtime instead of morning. Zofran 2mg Q6hr PRN started. 06/26/2024: Start Abilify 5 mg daily. Labs: Vitamin D, B12, hemoglobin A1c, fasting lipid profile. Y-BOCs questionaire. 06/25/2024: The patient was admitted to the [facility]) on q15 min checks (behavioral with suicide precautions) for safety. The patient will participate in group, recreational, and milieu therapies and will be offered additional individual and family sessions as clinically appropriate. -Medications: * Continue sertraline 50mg daily * Start mirtazapine 15mg HS po * Consider augmentation with mood stabilizer or abilify based on results of mood disorder questionnaire and/or Y-BOCS while waiting for SSRI to take effect -Questionnaires: * Y-BOCS * Mood Disorder Mental Health & Subst Abuse Tx Psychiatrist Name of Psychiatrist: [facility] - psychiatrist Ginny Beatty Psychiatrist's Date Of Appointment With Psychiatric Provider: 06/29/24 Time of Appointment with Psychiatrist: 3pm Therapist Name of Therapist: [facility] therapist Therapist's Therapy Appointment Comment: Seen for therapy on Tuesdays Feed Preparation Operator Name of Feed Preparation Operator: N/A Post Discharge Appointments Primary Care Physician Name Of Family Doctor/PCP: [facility] Discharge Plan Discharge Items Patient Disposition: Home - Self-Care Reason For Visit: UNSPECIFIED DEPRESSIVE DISORDER Discharge Diagnosis: Bipolar 2 disorder, major depressive episode: Generalized anxiety disorder with panic attacks: Obsessive compulsive disorder: Insomnia Weight loss, unintentional: Mild anemia: Condition on Discharge: Fair Activity: Resume your previous activity Non-emergency contact: Primary Care Provider and Therapist Call non-emergency contact if: you have any medication questions and your symptoms worsen Follow-up/Referrals: [facility] [Primary Care Provider] - Diet: Regular Addtl Attending Provider Instructions: -Continue Abilify 5mg at bedtime (Can be taken in the morning if easier) -Continue Sertraline 75mg at bedtime (Can be taken in the morning if easier) -Continue Mirtazapine 15mg at bedtime -F/U with counseling, psychiatrist Pending Studies at Discharge: No Stand-Alone Forms: [facility], Smoking Cessation Medications and DC Order Prescriptions: New mirtazapine 15 mg Tablet 15 mg PO HS Qty: 30 0RF sertraline 50 mg Tablet 75 mg PO HS Qty: 45 0RF aripiprazole [Abilify] 5 mg Tablet 5 mg PO HS Qty: 30 0RF cholecalciferol (vitamin D3) 125 mcg (5,000 unit) Tablet 125 mcg PO QAM Qty: 30 0RF hydroxyzine HCl 50 mg tablet 50 mg PO DAILY PRN (Reason: anxiety, insomnia) Qty: 30 0RF Discontinued escitalopram oxalate 5 mg tablet 5 mg PO DAILY sertraline 50 mg tablet 50 mg PO DAILY Discharge Orders: Discharge Order (Routine); Ordered 06/28/24 Ordered By: Thierno Baird Admission Data Admit Date/Time: 06/24/24 18:16 Attending Provider: Thierno Baird Admit Provider: Madelaine Anderson Primary Care Provider: [facility] Other Interventions: Discharge Summary Assessment (RN) Last Done: 06/28/24 12:16 PSY Interdisciplinary Discharge Planning Last Done: 06/28/24 12:16 [place] [address] D/C day mgmt > 30 min Patient Type Established History Detailed Exam Detailed Medical Decision Making High Complexity Diagnoses Bipolar 2 disorder, major depressive episode F31.81 Generalized anxiety disorder with panic attacks F41.1; F41.0 Obsessive compulsive disorder F42.9 Weight loss, unintentional R63.4 Mild anemia D64.9 Vitamin D deficiency E55.9
[2024-06-28] MEDS ORDERED: DESTROY THIS MEDICATION ONE (09:52)
[2024-06-28] MEDS ORDERED: ARIPiprazole 5 MG TAB PO SCH (22:00)
== END 2024-06-28 12:30 | disposition home or self-care (01) | DRG 885 ==
LOC: ED 13:58 → 3S 17:56 → SUATTDRO 18:16 → 3S 18:16